=== PATIENT | male | born 1970 | race Caucasian/White ===

== ENCOUNTER 2024-12-16 16:52 | Inpatient (IN) | payer OTHER ==
[~2024-12-16] VITALS: Ht 182.9 cm; Wt 129.0 kg
--- NOTE | 2024-12-16 17:42 | ELECTROCARDIOGRAPH REPORT ---
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
--- NOTE | 2024-12-16 18:21 | RADIOLOGY REPORT ---
CHEST RADIOGRAPH REASON FOR EXAM: SHORTNESS OF BREATH COMPARISON: None TECHNIQUE: One view of the chest is provided FINDINGS: The cardiomediastinal silhouette is within normal limits for technique. There is no focal a irspace disease. There is no significant pleural effusion. No acute bony abnormality is identified. IMPRESSION: No radiographic evidence of acute cardiopulmonary process.
--- NOTE | 2024-12-16 18:24 | Physician Documentation ---
History of Present Illness ~ Chief Complaint: Abdominal Pain w/vomiting Stated Complaint: UPSET STOMACH/V/D/BLOODY STOOL/FEVER Time Seen by MD: 18:09 HPI 54-year-old male who presents with diarrhea He tells me that about 1 month ago he started Ozempic. He has had 2 shots. Over the past 2 weeks he has been having terrible diarrhea, reports having about 20 episodes of watery diarrhea daily. He does have some blood the drips on the diarrhea afterwards and has some rectal pain. He reports general nausea. Today he was lightheaded and almost passed out. He feels very dehydrated. He has had some intermittent abdominal cramping but denies any current abdominal pain. Today he checked his temperature and he had a fever of 102. No vomiting. He has been trying to drink fluids, but not really eating. Medication Reconciliation Allergies: Coded Allergies: No Known Allergies (Unverified , 12/16/24) Scheduled Dicyclomine HCl (Dicyclomine HCl), 1 TAB PO TID, (Reported) Famotidine (Famotidine), 1 TAB PO DAILY, (Reported) Insulin Glargine,Hum.rec.anlog* (Lantus*), 20 UNITS SQ HS, (Reported) Quetiapine Fumarate (Quetiapine Fumarate), 1 TAB PO HS, (Reported) Scheduled PRN Sildenafil Citrate (Sildenafil Citrate), 1 TAB PO DAILY PRN for ERECTILE DYSFUNCTION, (Reported) Miscellaneous Medications [Simethicone], (Reported) Review of Systems Constitutional: Reports: fever Gastrointestinal: Reports: nausea, diarrhea; Denies: abdominal pain, vomiting Physical Exam Vital Signs: Temperature: 101.3, Heart Rate: 124, Respiratory Rate: 12, BP: 16 2/109, Pulse Oximetry: 96, Weight: 129.000 Oxygen Flow Rate: 1.0 Physical Exam General: This is a tired appearing middle-aged man, at bedside HEENT: Atraumatic, oropharynx dry with cracked lips Heart: Tachycardic, appears regular, heart rate in the 120s Lungs: Clear breath sounds bilateral, normal work of breathing, normal oxygen saturation on room air Abdomen: Soft, nondistended, nontender all quadrants Neuro: Alert and oriented, no focal deficits Psychiatric: Appears tired, but is cooperative with exam Progress Results/Orders Results/Orders Orders - ANNE MCMAHAN MD General Nursing Order (12/16/24 ) Mixed Venous (12/16/24 ) Page Hospitalist (12/16/24 20:28) Completed Orders - ANNE MCMAHAN MD Normal Saline 1000ml (Sodium Chloride 10 (12/16/24 18:20) Pantoprazole 40mg Iv (Protonix 40mg Iv) (12/16/24 18:20) Ondansetron Inj. (Zofran 4mg/2ml Vial) (12/16/24 18:20) Vital Signs 12/16/24 12/16/24 12/16/24 12/16/24 17:30 18:12 18:26 18:55 Temp 101.3 Pulse 137 124 115 Resp 24 12 14 13 B/P (MAP) 145/108 162/109 (126) 162/109 (126) Pulse Ox 95 96 98 O2 Flow Rate 1.0 2.0 12/16/24 12/16/24 12/16/24 20:13 21:00 22:00 Pulse 109 113 106 Resp 16 16 15 B/P (MAP) 157/102 (120) 158/101 (120) 153/99 (117) Pulse Ox 98 98 96 O2 Flow Rate 2.0 Laboratory Tests Test 12/16/24 17:51 12/16/24 20:22 12/16/24 20:55 White Blood Count 7.6 Red Blood Count 5.33 Hemoglobin 15.4 Hematocrit 44.8 Mean Corpuscular Volume 84.2 Mean Corpuscular Hemoglobin 28.8 Mean Corpuscular Hemoglobin Concent 34.3 Red Cell Distribution Width 12.9 Platelet Count 164 Mean Platelet Volume 10.4 Neutrophils (%) (Auto) 77.9 H Lymphocytes (%) (Auto) 12.8 L Monocytes (%) (Auto) 8.4 Eosinophils (%) (Auto) 0.3 Basophils (%) (Auto) 0.6 Neutrophils # (Auto) 5.9 Lymphocytes # (Auto) 1.0 L Monocytes # (Auto) 0.6 Eosinophils # (Auto) 0.0 Basophils # (Auto) 0.0 CBC Comment Sodium Level 133 L Potassium Level 3.5 Chloride Level 100 Carbon Dioxide Level 19.6 L Anion Gap 13 Blood Urea Nitrogen 9 Creatinine 1.01 Estimated GFR/1.73 m2 78 BUN/Creatinine Ratio 8.9 L Glucose Level 233 H Lactic Acid Level 1.6 Calcium Level 8.9 Troponin I High Sensitivity 5 Albumin 3.6 Lipase 19 Procalcitonin 0.09 Chemistry Comments Urine Specimen Description Urinal Urine Color Yellow Urine Clarity Clear Urine pH 6.0 Urine Specific [place] >=1.030 Urine Protein Negative Urine Glucose (UA) Negative Urine Ketones Trace H Urine Occult Blood Negative Urine Nitrite Negative Urine Bilirubin Negative Urine Urobilinogen 0.2 Urine Leukocyte Esterase Negative Urine Culture Indicated Not ind Volume Urine Centrifuged 10 ml Urine Comment Blood Gas Specimen Type Mixed venous Mixed Venous PO2 (Temp Corrected) 49.3 H Mixed Venous Blood O2 Saturation 88.9 H Microbiology Date/Time Source Procedure Growth Status 12/16/24 17:56 Blood Arm Left Blood Culture - Preliminary NEGATIVE (LESS THAN 24 HOURS) Resulted Consults/PCP Consults/PCP : Additional Comment Consult: I spoke to the internal medicine service, for admission in the hospital Medical Decision Making Diff Dx GI Bleed:Consideration: Include: Diverticulitis, Gastritis Diff Dx Pain:Considerations: Include: Hepatitis, Pancreatitis Diff Dx N/V/D:Considerations: Include: Drug toxicity, GI bleed, Renal failure, UTI Assessment The patient presents with multiple abdominal symptoms after recently starting Ozempic. Per his history and exam, this seems likely related to the medication use. He has a benign abdominal exam. He does appear clinically dehydrated. He was given symptomatic treatment and IV fluids for hydration. His labs show signs consistent with dehydration, and possibly early signs of heading towards DKA due to not taking his insulin and dehydration. Given his significant symptoms and severe dehydration, with ongoing tachycardic, I feel he would benefit from admission for further workup and treatment. He will be admitted to the medicine service. Departure Impression: Primary Impression: Diarrhea Additional Impression: Dehydration Referrals: NO PRIMARY CARE PROVIDER (PCP) Signature Scribe Signature: na Attestation: ANNE Palacios MD Dec 16, 2024 18:24
[2024-12-16 18:30] LABS: ALBUMIN 3.6 G/DL (3.4-5.0); ANION GAP 13 (8-16); BLOOD UREA NITROGEN 9 MG/DL (7-18); BUN/CREATININE RATIO 8.9 (10.0-20.0); CALCIUM 8.9 MG/DL (8.5-10.1); CHLORIDE 100 MMOL/L (99-107); CREATININE 1.01 MG/DL (0.60-1.10); GLUCOSE 233 MG/DL (70-104); POTASSIUM 3.5 MMOL/L (3.5-5.1); SODIUM 133 MMOL/L (135-145); TOTAL CARBON DIOXIDE 19.6 MMOL/L (24-32); eCRCL 94 ML/MIN; eGFR 78 ML/MIN
[2024-12-16 18:54] LABS: LIPASE 19 U/L (16-77)
[2024-12-16] MEDS: ondansetron/PF 4mg/2ml inj IV ONE (18:54)
[2024-12-16] MEDS: pantoprazole 40 MG vial IV ONE (18:54)
[2024-12-16] MEDS: normal saline 1000ml 1,000 ML IV ONE (18:55)
[2024-12-16 19:28] LABS: BASOPHILS % (AUTO) 0.6 % (0-1); EOSINOPHILS % (AUTO) 0.3 % (0-6); HEMATOCRIT 44.8 % (42.0-52.0); HEMOGLOBIN 15.4 g/dl (14.0-17.9); LYMPHOCYTES % (AUTO) 12.8 % (21-51); MEAN CORPUSCULAR HEMOGLOBIN 28.8 PG (27.0-31.0); MEAN CORPUSCULAR HGB CONC 34.3 g/dL (33.0-36.5); MEAN CORPUSCULAR VOLUME 84.2 FL (78-98); MEAN PLATELET VOLUME 10.4 FL (7.4-10.4); MONOCYTES # (AUTO) 0.6 X10'3 (0-0.9); MONOCYTES % (AUTO) 8.4 % (2-12); NEUTROPHILS # (AUTO) 5.9 X10'3 (1.8-7.7); NEUTROPHILS % (AUTO) 77.9 % (42-75); PLATELET COUNT 164 X10'3 (140-440); RED BLOOD COUNT 5.33 X10'6 (4.70-6.10); RED CELL DISTRIBUTION WIDTH 12.9 % (11.5-14.5); WHITE BLOOD COUNT 7.6 X10'3 (4.5-11.0)
[2024-12-16 20:32] LABS: BILIRUBIN,URINE NEGATIVE (Neg); CLARITY,URINE CLEAR (Clear); COLOR,URINE YELLOW (Yellow); GLUCOSE, URINE NEGATIVE (Neg); KETONES,URINE TRACE mg/dl (Neg); LEUKOCYTE ESTERASE ,URINE NEGATIVE (Neg); NITRITES, URINE NEGATIVE (Neg); OCCULT BLOOD,URINE NEGATIVE (Neg); PROTEIN,URINE NEGATIVE (Neg); UROBILINOGEN,URINE 0.2 E.U/dL (0.2-1.0)
[2024-12-16 20:34] LABS: UA COLLECTION TYPE URINAL
[2024-12-16 21:02] LABS: OXYGEN SATURATION (MIXED VEN) 88.9 % (60-80); PO2 MIXED VENOUS (TEMP COR) 49.3 mmHg (35-46)
[2024-12-16] MEDS ORDERED: acetaminophen 325mg tablet PO PRN (22:55)
[2024-12-16] MEDS ORDERED: potassium Cl 20 mEq SR tablet PO PRN (22:55)
[2024-12-16] MEDS ORDERED: magnesium Cl slow-release 64mg tablet PO PRN (22:55)
[2024-12-16] MEDS ORDERED: DEXTROSE 15 GM of carb/4 tabs (each vial/BOTTLE has 4 tablets) PO PRN ×2 (22:55)
[2024-12-16] MEDS ORDERED: magnesium sulf-water 4G/100mL 100 ML IV PRN (22:55)
[2024-12-16] MEDS ORDERED: ondansetron/PF 4mg/2ml inj IV PRN (22:55)
[2024-12-16] MEDS ORDERED: dextrose 50%-water 50ml dispensing syringe IV PRN ×2 (22:55)
[2024-12-16] MEDS ORDERED: magnesium sulf-water 2g/50mL 50 ML IV PRN (22:55)
[2024-12-16] MEDS ORDERED: potassium Cl 40MEQ/1/2NS 520ml 520 ML IV PRN (22:55)
[2024-12-16] MEDS ORDERED: glucagon, human recombinant 1mg kit SUBCUT PRN (22:55)
--- NOTE | 2024-12-16 23:12 | HISTORY AND PHYSICAL-Residence ---
History & Physical Providers to CC Resident Creating Document: SHIRA WOLF RES ~ History of Present Illness Reason for Admit\Complaint: Intractable diarrhea History of Present Illness This is a 69-year-old male with a history of type 2 diabetes and hypertension who presents with persistent watery diarrhea for the past two weeks, with 15-20 episodes daily. The diarrhea is associated with abdominal cramping, bloating, nausea, and vomiting. He is unable to tolerate oral intake and reports that within 30-45 minutes of eating, he develops abdominal bloating, vomiting, and diarrhea. The patient started Ozempic one month ago and has received two injections; the most recent one was two weeks ago, after which she has his gastrointestinal symptoms began. He presented to the ER today due to a new onset drenching sweats and a fever of 102 F around 3:00 p.m. he also reports small amount of blood, not mixed with stool, which she attributes it to chronic hemorrhoids. He denies recent antibiotic use, recent travel, or other new medications besides Ozempic. No prior surgical history. Allergies: Coded Allergies: No Known Allergies (Unverified , 12/16/24) Past Medical History Past Medical History Diabetes, hypertension Past Surgical History Surgical History Comment Noncontributory Past Social History Social History Comment Patient denies smoking, alcohol or recreational drugs ROS All Other Systems: Reviewed and Negative ROS As stated above in the HPI, otherwise all systems are reviewed and negative. Constitutional: Reports: fever Gastrointestinal: Reports: nausea, diarrhea; Denies: abdominal pain, vomiting Exam Vitals: Vital Signs Date Time Temp Pulse Resp B/P (MAP) Pulse Ox O2 Delivery O2 Flow Rate FiO2 12/16/24 20:13 109 16 157/102 (120) 98 2.0 12/16/24 17:30 101.3 General: Morbidly obese male, Awake and Alert, no acute distress. HEENT: Conjunctiva pink, Sclera clear, Mucus Membranes moist. Neck: Supple without masses and tenderness. Resp: Unlabored. Lungs clear to auscultation bilaterally. Heart: Regular Rate and rhythm, normal S1 and S2 without murmur, rub or gallop. Abdomen: Soft and non tender no organomegaly Extremities: No cyanosis,clubbing or edema. Skin: Warm and Dry. Diagnostic Data Last Recorded Lab Results: 12/16/24 1751 12/16/24 1751 Advance Care Planning Advanced Care plannin - 30 Minutes Additional Plan Watery diarrhea/fever Dehydration Ozempic induced versus infectious etiology 15-20 episodes of watery diarrhea daily/two weeks. Cramps, bloating, N/V Symptoms began after the 2nd dose of Ozempic. No recent antibiotic use, no recent travel Lipase, protocol, lactic acid normal Stool culture, C diff toxin, ova and parasite, and lactoferrin ordered, please follow IVF; NS 100 mL/hours Nausea/vomiting; Zofran Empiric ciprofloxacin Mild non-anion gap metabolic acidosis Bicarb 19, 2/2 intractable diarrhea Continue IV hydration Monitor BMP History of hemorrhoids/hematochezia Evaluate further if persistent Reports small amount of blood, not mixed with stool, suggesting hemorrhoidal bleeding Monitor for progression Diabetes type 2 Poor tolerance to Ozempic Hold Ozempic until full GI recovery Follow hemoglobin A1c Hyperglycemia/hypoglycemia protocol in place Hypertension Continue home medications Code status: Full code DVT prophylaxis: Tori Wolf Internal Medicine Resident I saw and evaluated the patient with the resident team He is having diarrhoea Would suggest to get CT abd/pel administer NaHCO3 2 amps Continue saline hydration Continue antibiotics We will follow Date of Service: Dec 16, 2024 Billing Provider: PHILLIP CASTELLANO MD, SHAMS, RES Dec 16, 2024 23:12 PHILLIP CASTELLANO MD Dec 17, 2024 03:16
[2024-12-17] MEDS: ciprofloxacin lact 400MG/200ML 200 ML IV ONE (00:08)
[2024-12-17] MEDS: ciprofloxacin lact 400MG/200ML 200 ML IV SCH (00:11)
[2024-12-17] MEDS: normal saline 1000ml 1,000 ML IV SCH (00:11)
[2024-12-17] MEDS ORDERED: SIMETHICONE (00:24)
[2024-12-17] MEDS ORDERED: FAMO40TA58 PO (00:24)
[2024-12-17] MEDS ORDERED: SILD50TA53 PO (00:24)
[2024-12-17] MEDS ORDERED: QUET50TA24 PO (00:24)
[2024-12-17] MEDS ORDERED: LANTUS SQ (00:24)
[2024-12-17] MEDS ORDERED: DICY20TA17 PO (00:24)
[2024-12-17 00:40] VITALS: BP 145/93; PULSE 95; RESP 20; TEMP 99.1; O2SAT 96
[2024-12-17 05:52] LABS: BASOPHILS % (AUTO) 0.6 % (0-1); EOSINOPHILS % (AUTO) 0.3 % (0-6); HEMATOCRIT 43.2 % (42.0-52.0); LYMPHOCYTES # (AUTO) 1.3 X10'3 (1.1-4.8); LYMPHOCYTES % (AUTO) 32.3 % (21-51); MEAN CORPUSCULAR HEMOGLOBIN 29.2 PG (27.0-31.0); MEAN CORPUSCULAR HGB CONC 34.8 g/dL (33.0-36.5); MEAN CORPUSCULAR VOLUME 83.8 FL (78-98); MEAN PLATELET VOLUME 9.3 FL (7.4-10.4); MONOCYTES # (AUTO) 0.5 X10'3 (0-0.9); MONOCYTES % (AUTO) 11.7 % (2-12); NEUTROPHILS # (AUTO) 2.3 X10'3 (1.8-7.7); NEUTROPHILS % (AUTO) 55.1 % (42-75); PLATELET COUNT 157 X10'3 (140-440); RED BLOOD COUNT 5.16 X10'6 (4.70-6.10); WHITE BLOOD COUNT 4.2 X10'3 (4.5-11.0)
[2024-12-17 06:00] VITALS: BP 111/67; PULSE 84; RESP 20; TEMP 98.5; O2SAT 97
[2024-12-17 06:03] LABS: HEMOGLOBIN A1C 10.3 % (4.5-6.2)
[2024-12-17 06:12] LABS: ALANINE AMINOTRANSFERASE 51 U/L (12-78); ALBUMIN 2.9 G/DL (3.4-5.0); ALBUMIN/GLOBULIN RATIO 0.9 (1.1-1.5); ALKALINE PHOSPHATASE 86 IU/L (46-116); ANION GAP 7 (8-16); ASPARTATE AMINO TRANSFERASE 29 U/L (10-37); BILIRUBIN,TOTAL 1.1 MG/DL (0.1-1.0); BLOOD UREA NITROGEN 7 MG/DL (7-18); BUN/CREATININE RATIO 8.2 (10.0-20.0); CALCIUM 7.8 MG/DL (8.5-10.1); CHLORIDE 103 MMOL/L (99-107); CHOL/HDL RATIO 3.8 (0.00-4.99); CHOLESTEROL 110 MG/DL (0-200); CREATININE 0.85 MG/DL (0.60-1.10); GLUCOSE 190 MG/DL (70-104); HDL CHOLESTEROL 29 MG/DL (35-60); LDL CHOLESTEROL 70 MG/DL (50-100); POTASSIUM 3.1 MMOL/L (3.5-5.1); SODIUM 135 MMOL/L (135-145); TOTAL CARBON DIOXIDE 25.5 MMOL/L (24-32); TOTAL PROTEIN 6.1 G/DL (6.4-8.2); TRIGLYCERIDES 66 MG/DL (20-135); eCRCL 112 ML/MIN; eGFR > 90 ML/MIN
[2024-12-17 08:00] VITALS: RESP 15; O2SAT 96
[2024-12-17] MEDS: enoxaparin 40mg/0.4ml syringe SUBCUT SCH (08:00)
[2024-12-17] MEDS: K and/or MAG REPLACEMENT MC SCH (08:00)
[2024-12-17] MEDS ORDERED: iohexol 300mg/ml 100ml inj. ONE (09:19)
[2024-12-17 10:00] VITALS: BP 142/89; PULSE 74; RESP 15; TEMP 98.5; O2SAT 97
[2024-12-17] MEDS: potassium Cl 20 mEq SR tablet PO PRN (10:35)
[2024-12-17] MEDS: INSULIN LISPRO 100 UNIT/ML INSULN.PEN MULTI-DOSE SQ SCH ×2 (10:37→17:21)
--- NOTE | 2024-12-17 10:51 | RADIOLOGY REPORT ---
CT CT ABDOMEN PELVIS W/ IV CONTRAST INDICATION: intractable diarrhea, abdominal pain 20 episodes/day EXAM DATE: 12/17/2024 10:11 AM COMPARISON: None RADIATION DOSE: CTDIvol: 36 mGy, DLP: 2082 mGy*cm PROCEDURE: Helical CT images were obtained of the abdomen and pelvis with IV contrast Sagittal and co richy reconstructions are provided. ORAL CONTRAST: None. ADDITIONAL IMAGES / REFORMATS: None All CT s cans at this medical facility are performed using dose modulation techniques as appropriate to a perf ormed exam including the following: Automated exposure control was utilized; adjustment of the MA and /or KV according to patient size; and use of iterative reconstruction technique. FINDINGS: LUNG BASE: Normal. LIVER: There is hepatic steatosis. The liver is nodular. GALLBLADDER AND BILIARY TREE: Gallstones are seen in the gallbladder. No intra- or extrahepatic bilia ry ductal dilation. PANCREAS: Normal. SPLEEN: Normal. BOWEL: There is moderate colonic diverticulosis. No small bowel dilatation is seen. The appendix appe ars normal. ADRENALS: Normal. KIDNEYS AND URETER: Punctate nonobstructive right kidney stone. BLADDER: Normal. REPRODUCTIVE ORGANS: Normal. LYMPH NODES:No lymphadenopathy. PERITONEUM: No ascites or free air. No other fluid collection. VESSELS: Scattered atherosclerotic calcifications are noted. RETROPERITONEUM: Normal. ABDOMINAL WALL: Normal. BONES: Scattered osseous degenerative changes are noted. IMPRESSION: No acute intraabdominal abnormality. Hepatic steatosis with possible Cirrhosis. moderate colonic diverticulosis. No small bowel dilatation is seen.
[2024-12-17 11:36] LABS: OCCULT BLOOD STOOL NEGATIVE (Neg)
--- NOTE | 2024-12-17 14:57 | PROGRESS NOTE- Residence ---
Progress Note - Resident Providers to CC Resident Creating Document: CALI YEBOAH, RES ~ Antibiotic Timeout Antibiotic Ordered?: Yes Subjective The patient has been evaluated at the bedside. The patient reports that he has diarrhea subsided this morning. His last bowel movement was in the morning, reported as normal. Objective Vital Signs Date Time Temp Pulse Resp B/P (MAP) Pulse Ox O2 Delivery O2 Flow Rate FiO2 12/17/24 10:00 98.5 74 15 142/89 (106) 97 Room Air 12/16/24 20:13 2.0 Physical exam: General: Well alert, well oriented, not confused, not agitated, not in acute distress, well cooperated during the physical. HEENT: Conjunctive are pink, sclerae clear, no icterus, pupil is equal in both sides, reactive to light, no ear discharge, no pharyngeal erythema or an edema. Neck: Supple, no JVD, no lymphadenopathy and thyromegaly. Chest: Equal air entry on both lungs, no additional sounds no rhonchi no wheezing at the moment. Cardiovascular: S1-S2 regular sinus rhythm and, regular rate, no gallops, no rubs, no murmurs Abdomen: No visible peristalsis, Bowel sounds present on auscultation, soft, nontender, no guarding, no rigidity Extremities: No obvious deformities, no pitting edema bilaterally, capillary refill intact, peripheral pulsations are intact on both sides Central Nervous System: No focal neurological deficits, no motor or sensory weakness in all 4 extremities, could move all 4 extremities, 2+ deep tendon reflexes, negative Babinski. Musculoskeletal: No joint swelling, deformities, inflammations, and no scoliosis and back tenderness Skin: Warm and dry. Result Diagram: 12/17/24 0532 12/17/24 0532 Assessment Assessment 54-year-old male patient coming to the hospital with chief complaint of watery diarrhea for the past two weeks. Plan Plan Acute diarrhea: Dehydration: Ozempic induced versus infectious etiology. 15-20 episodes of watery diarrhea daily/two weeks. Cramps, bloating, N/V Symptoms began after the 2nd dose of Ozempic. No recent antibiotic use, no recent travel Lipase, protocol, lactic acid normal Stool culture, C diff toxin, ova and parasite, and lactoferrin ordered, please follow IVF; NS 100 mL/hours Nausea/vomiting; Zofran Empiric ciprofloxacin 12/17/2024: Lipase levels within reference range. Started on metronidazole 500 mg IV b.i.d.. Continue ciprofloxacin 400 mg IV. Culturelle [address] mmu b.i.d. C diff test canceled due to formed stool. COVID-19 negative. Occult blood in his stool negative. Stool culture pending. Mild non-anion gap metabolic acidosis-improved Bicarb 19, 2/2 intractable diarrhea Continue IV hydration Monitor BMP. 12/17/2024: Bicarb levels 25.5. Continue NS at 80 mL/hour. History of hemorrhoids/hematochezia Evaluate further if persistent Reports small amount of blood, not mixed with stool, suggesting hemorrhoidal bleeding Monitor for progression Uncontrolled diabetes mellitus: Poor tolerance to Ozempic Hold Ozempic until full GI recovery Follow hemoglobin A1c Hyperglycemia/hypoglycemia protocol in place. Insulin glargine 25 units HS. High dose sliding scale short-acting insulin. Hypertension The patient is not currently at blood pressure medication at home. Diet controlled. Current blood pressure 142/89. Continue monitoring. Code status: Full code DVT prophylaxis: Enoxaparin 40 mg daily scale. Analgesia/sedation: None Line/tube: PIV GI prophylaxis: Protonix Nutrition: 75 carb controlled diet. PT: No Prognosis: Guarded Disposition: We will continue medical management. Anticipated discharge tomorrow. Cali Evans Internal Medicine Resident [facility] Date of Service: Dec 17, 2024 Billing Provider: TIMOTHY BAIG MD, FRANCO LUIS, RES Dec 17, 2024 14:57
[2024-12-17 18:00] VITALS: BP 112/76; PULSE 69; RESP 16; TEMP 97.9; O2SAT 94
[2024-12-17] MEDS: lactobacillus rhamnosus 10,000 MMU CELLS/CAPSULE PO SCH (20:14)
[2024-12-17] MEDS: metroNIDAZOLE-Flagyl 500mg/NS 100 ML IV SCH (20:15)
[2024-12-17 22:00] VITALS: BP 101/58; PULSE 65; RESP 18; TEMP 97.4; O2SAT 96
[2024-12-17] MEDS: QUEtiapine 25mg tablet PO SCH (22:45)
[2024-12-17] MEDS: insulin glargine (Lantus) pen - multi-dose SQ ONE (22:47)
[2024-12-17] MEDS: diatr meglu/diatrizoate 30ml oral sol.-(3 dose) bottle PO SCH (22:49)
[2024-12-17] MEDS: insulin glargine (Lantus) pen - multi-dose SQ SCH (22:55)
[2024-12-18 06:00] VITALS: BP 98/52; PULSE 68; RESP 16; TEMP 97.8; O2SAT 100
[2024-12-18 06:22] LABS: BASOPHILS % (AUTO) 0.7 % (0-1); EOSINOPHILS # (AUTO) 0.1 X10'3 (0-0.9); EOSINOPHILS % (AUTO) 2.2 % (0-6); HEMATOCRIT 44.2 % (42.0-52.0); HEMOGLOBIN 15.2 g/dl (14.0-17.9); LYMPHOCYTES # (AUTO) 2.1 X10'3 (1.1-4.8); LYMPHOCYTES % (AUTO) 39.1 % (21-51); MEAN CORPUSCULAR HEMOGLOBIN 28.8 PG (27.0-31.0); MEAN CORPUSCULAR HGB CONC 34.3 g/dL (33.0-36.5); MEAN CORPUSCULAR VOLUME 83.8 FL (78-98); MONOCYTES # (AUTO) 0.7 X10'3 (0-0.9); MONOCYTES % (AUTO) 13.3 % (2-12); NEUTROPHILS # (AUTO) 2.4 X10'3 (1.8-7.7); NEUTROPHILS % (AUTO) 44.7 % (42-75); PLATELET COUNT 158 X10'3 (140-440); RED BLOOD COUNT 5.27 X10'6 (4.70-6.10); RED CELL DISTRIBUTION WIDTH 12.8 % (11.5-14.5); WHITE BLOOD COUNT 5.4 X10'3 (4.5-11.0)
[2024-12-18 06:41] LABS: ALANINE AMINOTRANSFERASE 60 U/L (12-78); ALBUMIN 2.7 G/DL (3.4-5.0); ALBUMIN/GLOBULIN RATIO 0.8 (1.1-1.5); ALKALINE PHOSPHATASE 92 IU/L (46-116); ANION GAP 6 (8-16); ASPARTATE AMINO TRANSFERASE 35 U/L (10-37); BILIRUBIN,TOTAL 0.6 MG/DL (0.1-1.0); BLOOD UREA NITROGEN 8 MG/DL (7-18); BUN/CREATININE RATIO 11.3 (10.0-20.0); CALCIUM 8.3 MG/DL (8.5-10.1); CHLORIDE 105 MMOL/L (99-107); CREATININE 0.71 MG/DL (0.60-1.10); GLUCOSE 174 MG/DL (70-104); POTASSIUM 3.7 MMOL/L (3.5-5.1); SODIUM 136 MMOL/L (135-145); TOTAL CARBON DIOXIDE 25.3 MMOL/L (24-32); TOTAL PROTEIN 6.1 G/DL (6.4-8.2); eCRCL 134 ML/MIN; eGFR > 90 ML/MIN
[2024-12-18 08:00] VITALS: RESP 16; O2SAT 100
[2024-12-18] MEDS: pantoprazole 40mg Tablet.DR PO SCH (08:24)
[2024-12-18 10:00] VITALS: BP 133/86; PULSE 81; RESP 20; TEMP 97.8; O2SAT 100
[2024-12-18] MEDS ORDERED: LANTUS SQ (10:14)
[2024-12-18] MEDS ORDERED: CIPR-202 PO (10:14)
[2024-12-18] MEDS ORDERED: METR-159 PO (10:14)
[2024-12-18] MEDS ORDERED: LACT1CAP26 PO (10:14)
--- NOTE | 2024-12-18 13:37 | DISCHARGE SUMMARY-Residence ---
Discharge Summary Providers to CC Resident Creating Document: VALERIE YEBOAH AASHISH, RES ~ Discharge Summary Admission Diagnosis: INTRACTABLE DIARRHEA Hospital Course DATE OF ADMISSION: 12/16/2024 DATE OF DISCHARGE: 12/18/2024 Discharge Diagnosis\Comment: Acute bacterial diarrhea Dehydration Mild non-anion gap metabolic acidosis-improved History of hemorrhoids/hematochezia Uncontrolled diabetes mellitus Hypertension Operations\Procedures: None Consultants: None Complications: None Condition on DC: Stable New Medications: Ciprofloxacin HCl (Ciprofloxacin HCl) 500 Mg Tab 1 TAB PO BID for 6 Days, #12 TAB Lactobacillus Rhamnosus (Culturelle) 10 Billion Cell Capsule 1 CAP PO BID for 30 Days, #60 CAP 0 Refills Metronidazole* (Flagyl*) 500 Mg Tablet 1 TAB PO Q12H for 6 Days, #12 TAB Changed Medications: Insulin Glargine,Hum.rec.anlog* (Lantus*) 100 Unit/1 Ml Vial 25 UNITS SQ HS for 30 Days, #15 VIAL (Changed from: 20 UNITS) Continued Medications: Dicyclomine HCl (Dicyclomine HCl) 20 Mg Tablet 1 TAB PO TID Famotidine (Famotidine) 40 Mg Tablet 1 TAB PO DAILY Quetiapine Fumarate (Quetiapine Fumarate) 50 Mg Tablet 1 TAB PO HS Sildenafil Citrate (Sildenafil Citrate) 50 Mg Tablet 1 TAB PO DAILY PRN for ERECTILE DYSFUNCTION [Simethicone] () Discharge Summary: HPI: This is a 69-year-old male with a history of type 2 diabetes and hypertension who presents with persistent watery diarrhea for the past two weeks, with 15-20 episodes daily. The diarrhea is associated with abdominal cramping, bloating, nausea, and vomiting. He is unable to tolerate oral intake and reports that within 30-45 minutes of eating, he develops abdominal bloating, vomiting, and diarrhea. The patient started Ozempic one month ago and has received two injections; the most recent one was two weeks ago, after which she has his gastrointestinal symptoms began. He presented to the ER today due to a new onset drenching sweats and a fever of 102 F around 3:00 p.m. he also reports small amount of blood, not mixed with stool, which she attributes it to chronic hemorrhoids. He denies recent antibiotic use, recent travel, or other new medications besides Ozempic. No prior surgical history. Hospital course: 69-year-old male patient admitted to the hospital with the acute diarrhea. The patient was started with antibiotics based on metronidazole and ciprofloxacin IV. Associated to the antibiotics the patient was also started on probiotics and lab work for possibility of infectious diarrhea was ordered. Upon the next day the patient reports significant improvement of diarrhea. The patient states that he had a bowel movement on 12/17/2024 completely formed, brown in color. Results of stool came back negative for occult blood, C difficile was canceled because of formed stool. COVID-[address] scan of the abdomen and pelvis was also obtained showing possibility of liver steatosis and diverticulosis. As per patient he stopped Ozempic two weeks ago, not willing to restart this medication because he is concerned about association with Ozempic and his current episodes of diarrhea. The patient was started on hyper/hyp oglycemia protocol based on insulin glargine and short-acting insulin. The patient blood sugars improved significantly, last levels 174. Hemoglobin A1c was 10.3, as per patient improved from the last three months which was 11. The patient remained hemodynamically stable, eager to be discharged home. The patient will be discharged. Discharge course: The patient remained hemodynamically stable. The patient will be discharged with the following instructions: call 911 or come to to the emergency department if severe chest pain, uncontrolable diarrhea, fever sensation, shortness of breath is evidenced. Continue ciprofloxacin table 1 tablet of 500 mg every 12 hours. Take metronidazole 1 tablet of 500 mg every 12 hours. Take culturelle 1 capsule every 12 hours for 1 month. Follow up with your primary care physician. Recommended to continu insulin. Discontinue Ozempic for now. Physical exam: General: Well alert, well oriented, not confused, not agitated, not in acute distress, well cooperated during the physical. HEENT: Conjunctive are pink, sclerae clear, no icterus, pupil is equal in both sides, reactive to light, no ear discharge, no pharyngeal erythema or an edema. Neck: Supple, no JVD, no lymphadenopathy and thyromegaly. Chest: Equal air entry on both lungs, no additional sounds no rhonchi no wheezing at the moment. Cardiovascular: S1-S2 regular sinus rhythm and, regular rate, no gallops, no rubs, no murmurs Abdomen: No visible peristalsis, Bowel sounds present on auscultation, soft, nontender, no guarding, no rigidity Extremities: No obvious deformities, no pitting edema bilaterally, capillary refill intact, peripheral pulsations are intact on both sides Central Nervous System: No focal neurological deficits, no motor or sensory weakness in all 4 extremities, could move all 4 extremities, 2+ deep tendon reflexes, negative Babinski. Musculoskeletal: No joint swelling, deformities, inflammations, and no scoliosis and back tenderness Skin: Warm and dry. Vital Signs Date Time Temp Pulse Resp B/P (MAP) Pulse Ox O2 Delivery O2 Flow Rate FiO2 12/18/24 10:00 97.8 81 20 133/86 (102) 100 Room Air 12/17/24 20:00 2.0 Laboratory Tests Test 12/16/24 17:51 12/16/24 20:22 12/16/24 20:55 12/16/24 23:20 White Blood Count 7.6 X10'3 Red Blood Count 5.33 X10'6 Hemoglobin 15.4 g/dl Hematocrit 44.8 % Mean Corpuscular Volume 84.2 FL Mean Corpuscular Hemoglobin 28.8 PG Mean Corpuscular Hemoglobin Concent 34.3 g/dL Red Cell Distribution Width 12.9 % Platelet Count 164 X10'3 Mean Platelet Volume 10.4 FL Neutrophils (%) (Auto) 77.9 % Lymphocytes (%) (Auto) 12.8 % Monocytes (%) (Auto) 8.4 % Eosinophils (%) (Auto) 0.3 % Basophils (%) (Auto) 0.6 % Neutrophils # (Auto) 5.9 X10'3 Lymphocytes # (Auto) 1.0 X10'3 Monocytes # (Auto) 0.6 X10'3 Eosinophils # (Auto) 0.0 X10'3 Basophils # (Auto) 0.0 X10'3 CBC Comment Sodium Level 133 MMOL/L Potassium Level 3.5 MMOL/L Chloride Level 100 MMOL/L Carbon Dioxide Level 19.6 MMOL/L Anion Gap 13 Blood Urea Nitrogen 9 MG/DL Creatinine 1.01 MG/DL Estimated GFR/1.73 m2 78 ML/MIN BUN/Creatinine Ratio 8.9 Glucose Level 233 MG/DL Lactic Acid Level 1.6 MMOL/L Calcium Level 8.9 MG/DL Troponin I High Sensitivity 5 ng/L Albumin 3.6 G/DL Lipase 19 U/L Procalcitonin 0.09 NG/ML Chemistry Comments Urine Specimen Description Urinal Urine Color Yellow Urine Clarity Clear Urine pH 6.0 Urine Specific Rowley >=1.030 Urine Protein Negative mg/dl Urine Glucose (UA) Negative mg/dl Urine Ketones Trace mg/dl Urine Occult Blood Negative Urine Nitrite Negative Urine Bilirubin Negative Urine Urobilinogen 0.2 E.U/dL Urine Leukocyte Esterase Negative Urine Culture Indicated Not ind Volume Urine Centrifuged 10 ml Urine Comment Blood Gas Specimen Type Mixed venous Mixed Venous PO2 (Temp Corrected) 49.3 mmHg Mixed Venous Blood O2 Saturation 88.9 % SARS-CoV-2 Antigen (Rapid) Negative Test 12/17/24 00:35 12/17/24 02:01 12/17/24 05:32 12/17/24 08:16 Glucometer 230 mg/dl 183 mg/dl Hemoglobin A1c 10.4 % 10.3 % White Blood Count 4.2 X10'3 Red Blood Count 5.16 X10'6 Hemoglobin 15.0 g/dl Hematocrit 43.2 % Mean Corpuscular Volume 83.8 FL Mean Corpuscular Hemoglobin 29.2 PG Mean Corpuscular Hemoglobin Concent 34.8 g/dL Red Cell Distribution Width 13.0 % Platelet Count 157 X10'3 Mean Platelet Volume 9.3 FL Neutrophils (%) (Auto) 55.1 % Lymphocytes (%) (Auto) 32.3 % Monocytes (%) (Auto) 11.7 % Eosinophils (%) (Auto) 0.3 % Basophils (%) (Auto) 0.6 % Neutrophils # (Auto) 2.3 X10'3 Lymphocytes # (Auto) 1.3 X10'3 Monocytes # (Auto) 0.5 X10'3 Eosinophils # (Auto) 0.0 X10'3 Basophils # (Auto) 0.0 X10'3 CBC Comment Sodium Level 135 MMOL/L Potassium Level 3.1 MMOL/L Chloride Level 103 MMOL/L Carbon Dioxide Level 25.5 MMOL/L Anion Gap 7 Blood Urea Nitrogen 7 MG/DL Creatinine 0.85 MG/DL Estimated GFR/1.73 m2 > 90 ML/MIN BUN/Creatinine Ratio 8.2 Glucose Level 190 MG/DL Calcium Level 7.8 MG/DL Total Bilirubin 1.1 MG/DL Aspartate Amino Transf (AST/SGOT) 29 U/L Alanine Aminotransferase (ALT/SGPT) 51 U/L Alkaline Phosphatase 86 IU/L Total Protein 6.1 G/DL Albumin 2.9 G/DL Globulin 3.2 G/DL Albumin/Globulin Ratio 0.9 Triglycerides Level 66 MG/DL Cholesterol Level 110 MG/DL LDL Cholesterol 70 MG/DL HDL Cholesterol 29 MG/DL Cholesterol/HDL Ratio 3.8 Chemistry Comments Test 12/17/24 10:00 12/17/24 12:19 12/17/24 17:20 12/17/24 22:40 Stool Occult Blood Negative Glucometer 243 mg/dl 212 mg/dl 206 mg/dl Test 12/18/24 06:05 12/18/24 08:22 White Blood Count 5.4 X10'3 Red Blood Count 5.27 X10'6 Hemoglobin 15.2 g/dl Hematocrit 44.2 % Mean Corpuscular Volume 83.8 FL Mean Corpuscular Hemoglobin 28.8 PG Mean Corpuscular Hemoglobin Concent 34.3 g/dL Red Cell Distribution Width 12.8 % Platelet Count 158 X10'3 Mean Platelet Volume 9.0 FL Neutrophils (%) (Auto) 44.7 % Lymphocytes (%) (Auto) 39.1 % Monocytes (%) (Auto) 13.3 % Eosinophils (%) (Auto) 2.2 % Basophils (%) (Auto) 0.7 % Neutrophils # (Auto) 2.4 X10'3 Lymphocytes # (Auto) 2.1 X10'3 Monocytes # (Auto) 0.7 X10'3 Eosinophils # (Auto) 0.1 X10'3 Basophils # (Auto) 0.0 X10'3 CBC Comment Sodium Level 136 MMOL/L Potassium Level 3.7 MMOL/L Chloride Level 105 MMOL/L Carbon Dioxide Level 25.3 MMOL/L Anion Gap 6 Blood Urea Nitrogen 8 MG/DL Creatinine 0.71 MG/DL Estimated GFR/1.73 m2 > 90 ML/MIN BUN/Creatinine Ratio 11.3 Glucose Level 174 MG/DL Calcium Level 8.3 MG/DL Total Bilirubin 0.6 MG/DL Aspartate Amino Transf (AST/SGOT) 35 U/L Alanine Aminotransferase (ALT/SGPT) 60 U/L Alkaline Phosphatase 92 IU/L Total Protein 6.1 G/DL Albumin 2.7 G/DL Globulin 3.4 G/DL Albumin/Globulin Ratio 0.8 Chemistry Comments Glucometer 175 mg/dl *Problems/Diagnosis: (1) Diarrhea Status: Acute (2) Dehydration Status: Acute (3) Uncontrolled diabetes mellitus Status: Chronic Total Time Spent on D/C: > 30 Minutes Date of Service: Dec 18, 2024 Billing Provider: TIMOTHY BAIG MD Problem Qualifiers (1) Uncontrolled diabetes mellitus: Diabetes mellitus type: type 2 VALERIE YEBOAH, RES Dec 18, 2024 13:36
== END 2024-12-18 11:20 | disposition home or self-care (01) | DRG 372 ==
LOC: ER 16:54 → ED HOLD 22:24 → ORTHO 4S 12-17 00:40
PROVIDERS: ADMIT Internal Medicine; ATTEND Internal Medicine
PROC: BW211ZZ Computerized Tomography (CT Scan) of Abdomen and Pelvis using Low Osmolar Contrast (ICD-10-PCS; principal; 2024-12-17)
DX: A04.9 Bacterial intestinal infection, unspecified (principal); E87.20 Acidosis, unspecified; E11.9 Type 2 diabetes mellitus without complications; E86.0 Dehydration; I10 Essential (primary) hypertension; Z20.822 Contact with and (suspected) exposure to COVID-19; K76.0 Fatty (change of) liver, not elsewhere classified; K57.30 Diverticulosis of large intestine without perforation or abscess without bleeding
CPT/HCPCS: 36415; 71045; 74177; 80048; 80053; 80061; 81003; 82272; 82810; 82948; 83036; 83605; 83690; 84145; 84484; 85025; 87040; 87045; 87046; 87081; 87811; 89055; 93005; 96361; 96374; 96375; 97116; 97161; 97530; 99285; G0378; J0744; J1815; J2405; J2470; J3490; J7030; Q9963; Q9967